=== PATIENT | female | born 1955 | race African-American/Black ===

== ENCOUNTER 2022-07-21 18:53 | Emergency (ER) | payer OTHER ==
[2022-07-21 18:59] VITALS: BP 157/85; PULSE 84; RESP 20; TEMP 97.7; BMI 22.8
[2022-07-21] MEDS ORDERED: ACETAMINOPHEN 325 MG TABLET (FP) PO ONE (19:35)
[2022-07-21] MEDS ORDERED: ACETAMINOPHEN 325 MG TABLET (FP) ONE (19:36)
== END 2022-07-21 19:44 | disposition home or self-care (01) ==
LOC: EDBD 18:53 → FER 18:53
DX: S40.011A Contusion of right shoulder, initial encounter (principal); S05.11XA Contusion of eyeball and orbital tissues, right eye, initial encounter; W01.0XXA Fall on same level from slipping, tripping and stumbling without subsequent striking against object, initial encounter
CPT/HCPCS: 99283-25